=== PATIENT | male | born 1930 | race Caucasian/White ===

== ENCOUNTER → 2016-05-26 | Outpatient (CLI) | payer OTHER ==
[~2016-05-26] MED LIST: ADVIN25/60 INH; ASPCH81X PO; ATRIN INH; CARBTAB3 PO; CEFT1INJ6 IM; CYM/30 PO; CYNI1000 SQ; EXLP46 TOP; FERR1TAB13 PO; FLUT0.15 NAE; GLC/500 PO; GLIM1TAB2 PO; OXYB5TAB21 PO; PANT40TA PO; PIMA17TA PO; POLY335019 PO; RASA1TAB PO; ROPI1TAB PO; SIMV20TA2 PO; TAMS0.4C38 PO; TYLOTC500 PO
[2016-05-26 08:38] LABS: ESTIMATED AVERAGE GLUCOSE 123 mg/dl; HA1C FLAG Normal (Normal)
== END ==
LOC: C.LABCC 08:03
PROVIDERS: ATTEND Internal Medicine
DX: E11.21 Type 2 diabetes mellitus with diabetic nephropathy (principal)

== ENCOUNTER → 2016-08-14 | Outpatient (CLI) | payer OTHER ==
[2016-08-14 17:56] LABS: URINE APPEARANCE CLOUDY (CLEAR); URINE BILIRUBIN NEG (NEG); URINE COLOR DK YELLOW; URINE EPITHELIAL CELL AUTO >30 /lpf (0-5); URINE NITRITE POS (NEG); URINE SPECIFIC GRAVITY 1.024 (1.000-1.030); UROBILINOGEN NEG (NEG); ZZURINE CULT IF INDIC CATH YES
[2016-08-14 18:21] LABS: MANUAL MICROSCOPIC REQUIRED? NO; REVIEW REQ? YES
[2016-08-14 18:52] LABS: URINE PATH CASTS 0-3 GRANULAR CASTS /lpf (0)
== END | disposition home or self-care (01) ==
LOC: C.LABCC 17:29
PROVIDERS: ATTEND Internal Medicine
DX: R39.15 Urgency of urination (principal)

== ENCOUNTER → 2016-09-14 | Outpatient (CLI) | payer OTHER ==
[2016-09-14 01:51] LABS: URINE APPEARANCE CLOUDY (CLEAR); URINE BILIRUBIN NEG (NEG); URINE COLOR DK YELLOW; URINE NITRITE NEG (NEG); URINE SPECIFIC GRAVITY 1.023 (1.000-1.030); UROBILINOGEN NEG (NEG); ZZURINE CULT IF INDIC CATH YES
[2016-09-14 01:53] LABS: MANUAL MICROSCOPIC REQUIRED? NO; REVIEW REQ? NO
== END ==
LOC: C.LABCC 11:01
PROVIDERS: ATTEND Internal Medicine
DX: R45.1 Restlessness and agitation (principal); R41.82 Altered mental status, unspecified

== ENCOUNTER → 2016-09-26 | Outpatient (CLI) | payer OTHER ==
[2016-09-26 09:55] LABS: ESTIMATED AVERAGE GLUCOSE 120 mg/dl; HA1C FLAG Normal (Normal)
== END | disposition home or self-care (01) ==
LOC: C.LABCC 09:24
PROVIDERS: ATTEND Internal Medicine
DX: E11.21 Type 2 diabetes mellitus with diabetic nephropathy (principal)

== ENCOUNTER → 2016-10-03 | Outpatient (CLI) | payer OTHER ==
[2016-10-03 09:11] LABS: URINE APPEARANCE CLOUDY (CLEAR); URINE BILIRUBIN NEG (NEG); URINE COLOR DK YELLOW; URINE EPITHELIAL CELL AUTO 0-5 /lpf (0-5); URINE NITRITE NEG (NEG); URINE PH 6.5 (4.5-7.5); URINE SPECIFIC GRAVITY 1.025 (1.000-1.030); UROBILINOGEN NEG (NEG)
[2016-10-03 09:13] LABS: MANUAL MICROSCOPIC REQUIRED? NO; REVIEW REQ? NO
== END ==
LOC: C.LABCC 08:47
PROVIDERS: ATTEND Internal Medicine
DX: R41.82 Altered mental status, unspecified (principal)

== ENCOUNTER → 2016-10-05 | Outpatient (CLI) | payer OTHER ==
[2016-10-05 08:23] LABS: BASO % 0.5 %; BASO ABS # 0.03 K/uL (0-0.2); COMPLETE YES; EOS % 4.5 %; HEMATOCRIT 38.8 % (42-52); IG% 0.2 %; LYMPH % 24.6 %; LYMPH ABS # 1.47 K/uL (1.2-3.4); MEAN CELL VOLUME 91.1 fL (80-100); MEAN CORPUSCULAR HEMOGLOBIN 29.1 pg (25-34); MEAN PLATELET VOLUME 9.5 fL (7.4-10.4); MONO % 7.7 %; NEUT % 62.5 %; PLATELET COUNT 193 K/uL (130-400); RED BLOOD COUNT 4.26 M/uL (4.7-6.1); WHITE BLOOD COUNT 5.97 K/uL (4.8-10.8)
[2016-10-05 08:55] LABS: BLOOD UREA NITROGEN 21 mg/dl (7-18); BUN/CREATININE RATIO 24.5 (10-20); CARBON DIOXIDE 32 mmol/L (21-32); CHLORIDE 108 mmol/L (98-107); CREATININE 0.87 mg/dl (0.60-1.40); GLUCOSE 86 mg/dl (70-99); POTASSIUM 4.3 mmol/L (3.5-5.1); SODIUM 144 mmol/L (136-145)
== END ==
LOC: C.LABCC 08:05
PROVIDERS: ATTEND Internal Medicine
DX: N39.0 Urinary tract infection, site not specified (principal); R29.6 Repeated falls

== ENCOUNTER → 2016-11-30 | Outpatient (CLI) | payer OTHER ==
[2016-11-30 18:59] LABS: URINE APPEARANCE CLOUDY (CLEAR); URINE BILIRUBIN NEG (NEG); URINE COLOR DK YELLOW; URINE EPITHELIAL CELL AUTO 20-30 /lpf (0-5); URINE NITRITE NEG (NEG); URINE SPECIFIC GRAVITY 1.024 (1.000-1.030); UROBILINOGEN NEG (NEG)
[2016-11-30 19:03] LABS: MANUAL MICROSCOPIC REQUIRED? NO; REVIEW REQ? NO
== END ==
LOC: C.LABCC 17:39
PROVIDERS: ATTEND Internal Medicine
DX: R41.82 Altered mental status, unspecified (principal)

== ENCOUNTER → 2017-01-03 | Outpatient (CLI) | payer OTHER ==
[2017-01-03 09:04] LABS: URINE APPEARANCE CLEAR (CLEAR); URINE BILIRUBIN NEG (NEG); URINE COLOR DK YELLOW; URINE EPITHELIAL CELL AUTO 0-5 /lpf (0-5); URINE NITRITE NEG (NEG); URINE PH 5.5 (4.5-7.5); URINE SPECIFIC GRAVITY 1.031 (1.000-1.030); UROBILINOGEN NEG (NEG)
[2017-01-03 09:19] LABS: MANUAL MICROSCOPIC REQUIRED? NO; REVIEW REQ? YES
== END | disposition home or self-care (01) ==
LOC: C.LABCC 08:13
PROVIDERS: ATTEND Internal Medicine
DX: R41.82 Altered mental status, unspecified (principal)

== ENCOUNTER → 2017-01-09 | Outpatient (CLI) | payer OTHER ==
[2017-01-09 19:27] LABS: URINE APPEARANCE CLOUDY (CLEAR); URINE BILIRUBIN NEG (NEG); URINE COLOR DK YELLOW; URINE NITRITE NEG (NEG); URINE SPECIFIC GRAVITY 1.023 (1.000-1.030); UROBILINOGEN NEG (NEG)
[2017-01-09 19:28] LABS: MANUAL MICROSCOPIC REQUIRED? NO; REVIEW REQ? NO
== END ==
LOC: C.LABSPEC 17:37
PROVIDERS: ATTEND Internal Medicine
DX: R41.82 Altered mental status, unspecified (principal); R35.0 Frequency of micturition; R29.6 Repeated falls

== ENCOUNTER → 2017-01-26 | Outpatient (CLI) | payer OTHER ==
[2017-01-26 09:51] LABS: ESTIMATED AVERAGE GLUCOSE 123 mg/dl; HA1C FLAG Normal (Normal)
== END ==
LOC: C.LABCC 07:51
PROVIDERS: ATTEND Internal Medicine
DX: E11.21 Type 2 diabetes mellitus with diabetic nephropathy (principal)

== ENCOUNTER → 2017-02-04 | Outpatient (CLI) | payer OTHER ==
[2017-02-04 09:41] LABS: URINE APPEARANCE TURBID (CLEAR); URINE BILIRUBIN NEG (NEG); URINE COLOR DK YELLOW; URINE NITRITE NEG (NEG); URINE PH 8.5 (4.5-7.5); URINE SPECIFIC GRAVITY 1.021 (1.000-1.030); UROBILINOGEN NEG (NEG)
[2017-02-04 10:14] LABS: MANUAL MICROSCOPIC REQUIRED? NO; REVIEW REQ? YES; SULFASALICYLIC ACID POS (NEG)
== END ==
LOC: C.LABCC 15:28
PROVIDERS: ATTEND Internal Medicine
DX: R29.6 Repeated falls (principal); R41.82 Altered mental status, unspecified

== ENCOUNTER → 2017-02-05 | Outpatient (CLI) | payer OTHER ==
[2017-02-05 10:00] LABS: BASO % 0.4 %; BASO ABS # 0.03 K/uL (0-0.2); COMPLETE YES; EOS % 3.4 %; HEMATOCRIT 38.5 % (42-52); IG% 0.1 %; LYMPH % 23.3 %; LYMPH ABS # 1.66 K/uL (1.2-3.4); MEAN CELL VOLUME 90.8 fL (80-100); MEAN CORPUSCULAR HEMOGLOBIN 30.2 pg (25-34); MEAN CORPUSCULAR HGB CONC 33.2 g/dl (32-36); MEAN PLATELET VOLUME 9.9 fL (7.4-10.4); MONO % 6.2 %; NEUT % 66.6 %; PLATELET COUNT 192 K/uL (130-400); RED BLOOD COUNT 4.24 M/uL (4.7-6.1); WHITE BLOOD COUNT 7.11 K/uL (4.8-10.8)
[2017-02-05 10:36] LABS: BLOOD UREA NITROGEN 25 mg/dl (7-18); BUN/CREATININE RATIO 29.6 (10-20); CALCIUM 8.4 mg/dl (8.5-10.1); CARBON DIOXIDE 27 mmol/L (21-32); CHLORIDE 108 mmol/L (98-107); CREATININE 0.85 mg/dl (0.60-1.40); GLUCOSE 97 mg/dl (70-99); POTASSIUM 3.9 mmol/L (3.5-5.1); SODIUM 141 mmol/L (136-145)
== END ==
LOC: C.LABCC 09:19
PROVIDERS: ATTEND Internal Medicine
DX: R29.6 Repeated falls (principal)

== ENCOUNTER → 2017-02-07 | Outpatient (CLI) | payer OTHER | LOC: C.LABCC 08:25 | PROVIDERS: ATTEND Internal Medicine | DX: R41.82 Altered mental status, unspecified (principal); R29.6 Repeated falls ==

== ENCOUNTER → 2017-05-24 | Outpatient (CLI) | payer OTHER ==
[2017-05-24 09:35] LABS: HEMATOCRIT 38.9 % (42-52); HEMOGLOBIN 12.8 g/dL (14.0-18.0); MEAN CELL VOLUME 92.4 fL (80-100); MEAN CORPUSCULAR HEMOGLOBIN 30.4 pg (25-34); MEAN CORPUSCULAR HGB CONC 32.9 g/dl (32-36); PLATELET COUNT 205 K/uL (130-400); RED CELL DISTRIBUTION WIDTH CV 14.3 % (11.5-14.5); RED CELL DISTRIBUTION WIDTH SD 48.4 fL (36.4-46.3); WHITE BLOOD COUNT 5.01 K/uL (4.8-10.8)
[2017-05-24 10:00] LABS: ALT/SGPT 20 U/L (12-78); AST/SGOT 12 U/L (15-37); BLOOD UREA NITROGEN 26 mg/dl (7-18); CALCIUM 8.2 mg/dl (8.5-10.1); CARBON DIOXIDE 29 mmol/L (21-32); CREATININE 0.71 mg/dl (0.60-1.40); GLUCOSE 89 mg/dl (70-99); POTASSIUM 4.1 mmol/L (3.5-5.1); SODIUM 140 mmol/L (136-145)
[2017-05-24 10:12] LABS: ALKALINE PHOSPHATASE 62 U/L (45-117); TOTAL PROTEIN 6.5 gm/dl (6.4-8.2)
== END ==
LOC: C.LABCC 08:55
PROVIDERS: ATTEND Internal Medicine
DX: R26.9 Unspecified abnormalities of gait and mobility (principal); G20 Parkinson's disease; I10 Essential (primary) hypertension

== ENCOUNTER → 2017-05-29 | Outpatient (CLI) | payer OTHER ==
[2017-05-29 08:48] LABS: HEMOGLOBIN A1C 5.3 % (4.5-5.6)
== END ==
LOC: C.LABCC 07:55
PROVIDERS: ATTEND Internal Medicine
DX: E11.9 Type 2 diabetes mellitus without complications (principal)

== ENCOUNTER → 2017-06-06 | Outpatient (CLI) | payer OTHER ==
--- NOTE | 2017-07-06 07:17 | CODING QUERY NO DIAGNOSIS ---
TREATMENT RENDERED WITHOUT A DIAGNOSIS To promote full compliance with coding requirements relating to patient care, physician participation is requested in all cases of tire changer uncertainty. Please assist us with providing a diagnosis/symptom for the test(s) below: A diagnosis/symptom was not documented on your Order. A valid diagnosis/symptom is required to bill all insurances. Please remember that we are unable to code a diagnosis of rule out, probable, possible, questionable, or suspected. Tests that require a diagnosis: DOS: 06/06/17 * UA CATH DIAGNOSIS: * URINE CULTURE CATH DIAGNOSIS: Provider Signature: Date: Thank you Kimberly Weaver [employer] Once completed, please kindly fax back to [phone] For questions please call [phone]
== END ==
LOC: C.LABSPEC 14:05
PROVIDERS: ATTEND Internal Medicine
DX: R41.82 Altered mental status, unspecified (principal); R29.6 Repeated falls

== ENCOUNTER → 2017-06-12 | Outpatient (CLI) | payer OTHER ==
[2017-06-12 08:19] LABS: MEAN CORPUSCULAR HGB CONC 31.8 g/dl (32-36); MEAN PLATELET VOLUME 9.9 fL (7.4-10.4); NUCLEATED RED BLOOD CELL ABS 0.03 K/uL (0-0); PLATELET COUNT 237 K/uL (130-400)
[2017-06-12 08:42] LABS: HEMATOCRIT 37.7 % (42-52); MEAN CELL VOLUME 92.2 fL (80-100); MEAN CORPUSCULAR HEMOGLOBIN 29.3 pg (25-34); RED CELL DISTRIBUTION WIDTH CV 13.7 % (11.5-14.5); RED CELL DISTRIBUTION WIDTH SD 46.1 fL (36.4-46.3); WHITE BLOOD COUNT 5.58 K/uL (4.8-10.8)
[2017-06-12 08:43] LABS: BASO % 0.4 %; BASO ABS # 0.02 K/uL (0-0.2); EOS % 4.1 %; EOS ABS # 0.23 K/uL (0-0.5); IG# 0.01 K/uL (0.00-0.02); LYMPH % 21.5 %; MONO % 5.9 %; MONO ABS # 0.33 K/uL (0.11-0.59); NEUT % 67.9 %; NEUT ABS # 3.79 K/uL (1.4-6.5)
== END ==
LOC: C.LABCC 07:46
PROVIDERS: ATTEND Internal Medicine
DX: M79.81 Nontraumatic hematoma of soft tissue (principal)

== ENCOUNTER → 2017-06-13 | Outpatient (CLI) | payer OTHER | LOC: C.LABCC 18:02 | PROVIDERS: ATTEND Internal Medicine | DX: R25.1 Tremor, unspecified (principal); R41.82 Altered mental status, unspecified ==

== ENCOUNTER 2017-07-28 21:28 | Emergency (ER) | payer OTHER ==
[~2017-07-28] VITALS: Ht 179.1 cm; Wt 89.3 kg
[2017-07-28] MEDS ORDERED: ACETAMINOPHEN 500 MG TAB PO STA (21:43)
[2017-07-28 21:46] VITALS: TEMP 36.5; O2SAT 100; Ht 179.1 cm; Wt 89.3 kg
--- NOTE | 2017-07-28 22:00 | EMERGENCY ROOM VISIT NOTE ---
History Report prepared by Harsha: Erin Capone Under the Supervision of: Dr. Sim Silvestre M.D. First contact with patient: 21:31 Chief Complaint: FALL Stated Complaint: FALL/ R HIP PAIN /CENTRE CREST History of Present Illness The patient is a 86 year old male who presents to the Emergency Room with complaints of an episode of an unwitnessed fall occurring just prior to arrival. The patient comes from [facility]. Per nursing, the patient was in a his wheelchair and when the staff went back into the room he was found lying on the ground. Family reports the patient is at baseline. The patient reports lower back pain which is chronic for him. He states he has fallen seven times last month. He notes right heel pain and left upper leg pain. The patient is not on any blood thinners. The patient notes a lump on his chest which he believes is new. The patient recently broke his left knee. The patient was in a leg immobilizer for his broken knee which he got out of a week ago. He denies any fever, chills, cough, or congestion. The patient has a history of Parkinson' s disease. Source of History: patient, nursing staff Onset: just prior to arrival Position: other (generalized) Quality: other (fall) Timing: other (episode) Associated Symptoms: + back pain, No fevers, No chills, No cough Review of Systems See HPI for pertinent positives and negatives. A total of ten systems were reviewed and were otherwise negative. Past Medical & Surgical Medical Problems: (1) Parkinson's disease (2) UTI (urinary tract infection) Family History Patient reports no known family medical history. Social History Drug Use: none Marital Status: Housing Status: other Occupation Status: retired Current/Historical Medications Scheduled Acetaminophen (Tylenol), 1,000 MG PO AMHS Aspirin (Aspirin Chewable), 81 MG PO DAILY Carbidopa/Levodopa/Entacapone 37.5/150/200MG (Stalevo 150), 1 TAB PO QID Cyanocobalamin (Cyanocobalamin), 1,000 MCG SQ MONTHLY Duloxetine Hcl (Cymbalta), 30 MG PO QAM Finasteride (Proscar), 5 MG PO QAM Fluticasone Propionate (Nasal) (Flonase Allergy Relief), 2 SPRAY GRETA DAILY Glimepiride (Glimepiride), 1 TAB PO QAM Ipratropium [place] (Atrovent Hfa), 2 PUFFS INH QID Metformin Hcl (Glucophage), 500 MG PO BID Multiple Vitamins W/ Minerals (Multi Vitamin and Mineral), 1 TAB PO QAM Pantoprazole (Protonix), 40 MG PO QAM Petrolatum-Zinc Oxide (Sensi-Care Protective Bar), 1 APPLN TD Q8 Rasagiline Mesylate (Azilect), 1 MG PO QAM Rivastigmine Tartrate (Exelon), 1 PATCH TOP QAM Ropinirole (Requip), 1 MG PO TID Senna/Docusate Sod (Senokot S), 1 TAB PO BID Tamsulosin Hcl (Flomax), 0.4 MG PO HS Scheduled PRN Acetaminophen (Tylenol), 650 MG PO Q6H PRN for Pain or Fever Bisacodyl (Dulcolax), 1 SUPP RI DAILY PRN for NO BM IN 3 DAYS Magnesium Hydroxide (Milk of Magnesia), 30 ML PO DAILY PRN for NO BM IN 3 DAYS. Oxycodone Ir (Roxicodone Ir), 5 MG PO Q4H PRN for Moderate Pain Oxycodone Ir (Roxicodone Ir), 5 MG PO Q6H PRN for SEVERE PAIN Sodium Phosphate/Biphosphate (Fleet Enema), 1 EA RI DAILY PRN for NO BM AFTER DULCOLAX SUPP Allergies Coded Allergies: Cat Dander (Verified Allergy, Unknown, unknown, 07/28/17) Obtained from [facility] facility information Grass (Verified Allergy, Unknown, unknown, 07/28/17) Obtained from [facility] facility information POLLEN (Verified Allergy, Unknown, unknown, 07/28/17) Obtained from [facility] information Senna (Verified Allergy, Unknown, respiratory problems per spouse, 07/28/17 ) Obtained from [facility] information Hydrocodone (Verified Adverse Reaction, Unknown, HALLUCINATIONS, 07/28/17) Zolpidem (Verified Adverse Reaction, Unknown, Hallucinations, 07/28/17) Obtained from [facility] information Physical Exam Vital Signs Date Time Temp Pulse Resp B/P (MAP) Pulse Ox O2 Delivery O2 Flow Rate FiO2 07/29/17 01:28 88 16 98 07/29/17 01:03 162/81 07/29/17 00:58 79 07/29/17 00:02 154/95 07/28/17 23:58 79 22 97 07/28/17 23:53 76 18 166/87 100 Room Air 07/28/17 23:39 166/97 07/28/17 22:00 127/86 07/28/17 21:58 82 23 98 07/28/17 21:46 100 Room Air 07/28/17 21:46 36.5 84 18 144/77 100 Room Air 07/28/17 21:36 83 07/28/17 21:34 144/77 Physical Exam GENERAL: Awake, alert, demented at baseline, no distress HEAD: Normocephalic, atraumatic. No peck sign. No raccoon eyes. EYES: Normal conjunctiva. PERRL. EARS: External ears normal. Right TM normal. Left TM normal. NOSE: Atraumatic OROPHARYNX: Lips, tongue, and mucosa are dry. No erythema or exudate. NECK: No No tracheal deviation or JVD. No posterior midline tenderness. No step offs noted. RESPIRATORY: CTA bilaterally CARDIAC: Normal rate, normal rhythm. ABDOMEN: Inspection reveals no abnormalities. Soft, non distended. No tenderness to palpation. No hernias. BACK: Mild L-spine tenderness, no step off. Unremarkable. PELVIS: Stable to rock. SKIN: Normal. LYMPH: No adenopathy. MUSCULOSKELETAL: Mild tenderness and swelling to left knee, ROM intact. Mild tenderness to left heel and proximal tibia no gross deformity. NEURO: GCS 15. Normal sensorium. No sensory or motor deficits noted. Medical Decision & Procedures ER Provider Diagnostic Interpretation: Radiology results as stated below per my review and radiologist interpretation: CT SCAN OF THE CHEST, ABDOMEN, AND PELVIS WITHOUT IV CONTRAST CHEST: Thyroid: Imaged portions of the thyroid gland are normal in size and attenuation. Thoracic aorta: There is atherosclerotic calcification of the thoracic aorta, which is normal in caliber and demonstrates standard 3-vessel arch anatomy. Heart: The patient is status post midline sternotomy. Findings suggest previous aortic valve surgery. The heart is mildly enlarged and without pericardial effusion. The coronary arteries are densely calcified. The main pulmonary arteries appear mildly dilated suggesting pulmonary artery hypertension Lungs and pleural spaces: Evaluation of lung parenchyma is degraded by motion artifact. Emphysema and interstitial thickening are noted. The trachea and central airways are patent. No pleural effusion is identified. Patchy tree-in-bud airspace consolidation is seen at the right lung base. There is a groundglass lesion in the left lower lobe seen on image #159. This measures 3.2 x 2.7 cm. A more superiorly located groundglass/nodular lesion in the left lower lobe as seen on image #131 and measures 2.3 x 1.7 cm. A 1.2 cm groundglass lesion is seen at the right apex image #37. Mediastinum: There is no mediastinal hematoma or lymphadenopathy. Adriana: Not well assessed without IV contrast. Axillae: There is no axillary lymphadenopathy. Bony thorax: The skeletal structures are osteopenic. The bony thorax appears intact. No lytic or blastic lesions are identified. There are healed right-sided rib fractures. Degenerative change is noted throughout the thoracic spine. Intrathecal leads terminate in the midthoracic region. Soft tissues: An electronic device is present in the right upper chest wall. ABDOMEN AND PELVIS: Liver: Evaluation of the liver is degraded by streak artifact. The unenhanced liver is normal in size, contour, and attenuation. There is no intrahepatic or ductal dilatation. Gallbladder: Contracted and grossly unremarkable. Spleen: Top normal in size measuring 13.3 cm. The spleen is normal in attenuation. Pancreas: The unenhanced pancreas is markedly atrophic and grossly unremarkable. 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 The right adrenal gland is normal in appearance. Kidneys: The unenhanced kidneys are atrophic and without hydronephrosis. Renovascular calcifications are noted. There is a 5 mm calculus in the right proximal ureter seen on image #215 at the level of L4. There is mild fullness of the renal collecting system. No additional calculi are seen in either kidney. There is no evidence of contour deforming mass lesion. Abdominal vasculature: The abdominal aorta is normal in course and caliber noting advanced atherosclerotic calcification. Bowel: Mild rectal wall thickening is suggested. No bowel obstruction is seen. There is mild to moderate colonic diverticulosis without CT evidence of acute diverticulitis. Moderate colonic fecal retention is observed. The appendix is not identified. Peritoneum: There is no intraperitoneal free air or abdominal ascites. There is a fat-containing umbilical hernia. Lymphadenopathy: None. Pelvic viscera: The prostate gland is mildly enlarged and heterogeneous. The bladder wall appears thickened and trabeculated indicating chronic outlet obstruction. Skeletal structures: The skeletal structures are osteopenic. Lumbosacral spine and bony pelvis appear intact. There is advanced lumbosacral spondylosis. Grade 1 anterolisthesis and near complete bony fusion is seen at L3-L4. No lytic or blastic lesions are seen. Postlaminectomy change is seen throughout the lumbar spine. A nurse similar device is present in the right gluteal soft tissues. IMPRESSION: 1. Significantly suboptimal examination without oral and IV contrast. The examination is also compromised by streak and motion artifact. 2. Cardiomegaly and emphysema. 3. There is patchy tree-in-bud airspace consolidation at the right lung base. The appearance is typical for an infectious/inflammatory pneumonitis versus aspiration. 4. There are at least 3 additional groundglass pulmonary lesions seen located in the right upper and left lower lobes. These are pathologically indeterminant, and may be on an infectious/inflammatory basis. Neoplasm is not excluded. A 2-3 month follow-up chest CT is recommended to document resolution. 5. There is no evidence of solid organ injury in the abdomen or pelvis on this unenhanced examination. 6. There is a 5 mm obstructing calculus in the right proximal ureter. This causes only minimal fullness of the right renal collecting system. 7. Moderate constipation. No bowel obstruction is seen. 8. Circumferential rectal wall thickening is identified. Correlate clinically for evidence of proctitis. Consider nonemergent follow-up with colonoscopy for further assessment and to exclude underlying mucosal lesion. 9. Colonic diverticulosis without CT evidence of acute diverticulitis. 10. Additional findings as above. Electronically signed by: Brigido Dietrich M.D. CT SCAN OF THE CERVICAL SPINE FINDINGS: Skeletal structures: The skeletal structures are osteopenic. There is no evidence of fracture or subluxation involving the cervical spine. Vertebral body height and alignment are maintained. There is straightening of the cervical lordosis with mild reversal centered at C4-C5. The odontoid process and lateral masses are intact. The atlantoaxial articulation is preserved noting mild productive degenerative change. The spinous processes appear intact. Small anterior osteophytes are seen in the lower cervical region. There is mild multilevel cervical spondylosis. Facet arthropathy is noted at several levels. Intervertebral discs: The disc spaces are well maintained. Central canal: Widely patent. Soft tissues: The prevertebral and paraspinous soft tissues are within normal limits. Advanced atherosclerotic calcification is noted in the carotid bulbs. Leads are present in the right posterior soft tissues. Calvarium: The visualized calvarium at the skull base appears intact. Brain parenchyma: Partially visualized brain parenchyma the skull base is within normal limits noting involutional change. Sinuses and mastoids: The visualized paranasal sinuses are clear. Mastoid effusions are noted. Lung apices: Emphysematous change is noted at the apices. A 1.2 cm groundglass lesion is noted at the right apex. IMPRESSION: 1. There is no evidence of fracture or subluxation involving the cervical spine. 2. Osteopenia and spondylotic change as above. Electronically signed by: Brigido Dietrich M.D. SINGLE VIEW CHEST IMPRESSION: 1. Cardiomegaly and emphysema. 2. No airspace consolidation or pleural effusion is identified. 3. Ground glass pulmonary lesions seen on today's chest CT are not apparent by x-ray. See chest CT report for detailed findings.. Electronically signed by: Brigido Dietrich M.D. RIGHT FEMUR 3 VIEWS FINDINGS: AP, frog-leg, and lateral views of the right femur are obtained. No prior studies are available for comparison at the time of dictation. The skeletal structures are osteopenic. There is no radiographic evidence of right femoral fracture. Mild arthritic change is seen in the hip joint. A right knee arthroplasty is partially imaged. The visualized right hemipelvis appears intact. The overlying soft tissues are within normal limits. There is advanced atherosclerotic calcification of the right femoral artery. IMPRESSION: Osteopenia with no radiographic evidence of right femoral fracture. Electronically signed by: Brigido Dietrich M.D. RIGHT FOOT 3 VIEWS CLINICAL HISTORY: Fall with right foot pain. FINDINGS: 3 views of the right foot are obtained. No prior studies are available for comparison at the time of dictation. The skeletal structures are osteopenic. No fracture is identified. Mild arthritic change is seen at the first metatarsophalangeal joint. Mild arthritic change is also seen involving the intertarsal joints. The overlying soft tissues are normal in appearance. Atherosclerotic calcification is present in the regional arteries. IMPRESSION: Osteopenia and arthritic change as above. There is no radiographic evidence of right foot fracture. Electronically signed by: Brigido Dietrich M.D. CT SCAN OF THE BRAIN WITHOUT IV CONTRAST FINDINGS: Brain parenchyma: Electrodes are identified from a bifrontal approach. These terminate in the thalamus bilaterally. There are age-related involutional changes noting mild subcortical and periventricular microangiopathic change. There is no hemorrhage, mass effect, or evidence of acute territorial ischemia by CT criteria. Cano-white matter is preserved. No extra-axial fluid collection is seen. Ventricles, sulci, cisterns: Prominent secondary to involutional change. Intracranial vasculature: There is atherosclerotic calcification of the cavernous carotid and vertebral arteries. Calvarium: The skeletal structures are osteopenic. No depressed calvarial fracture is seen. There are bifrontal zulay holes. Soft tissues: There is a small left posterior parietal scalp contusion. Sinuses and mastoids: There is mild mucosal thickening seen within the maxillary antra. The remaining visualized paranasal sinuses are clear. There are small mastoid effusions. Orbits: The bony orbits are grossly intact. Bilateral ocular lens implants are noted. IMPRESSION: 1. There is no hemorrhage, mass effect, or evidence of acute territorial ischemia by CT criteria. 2. Bilateral intracranial electrodes are identified and terminate in the thalami. Electronically signed by: Brigido Dietrich M.D. SINGLE VIEW PELVIS; 2 VIEWS RIGHT HIP CLINICAL HISTORY: Fall. FINDINGS: An AP pelvic radiograph with AP and frog-leg views of the right hip are correlated with pelvic CT performed the same day 07/28/2017. The skeletal structures are osteopenic. No fracture is seen involving the hips or bony pelvis. Mild arthritic change is noted in the hips. The overlying soft tissues are normal in appearance. Advanced atherosclerotic calcification is seen in the femoral arteries. Lumbosacral spondylosis is partially imaged. An electronic device projects over the right lower quadrant. No bowel obstruction is seen. IMPRESSION: Osteopenia with no radiographic evidence of fracture involving the hips or bony pelvis. Electronically signed by: Brigido Dietrich M.D. RIGHT KNEE 3 VIEWS CLINICAL HISTORY: Fall with right knee pain. FINDINGS: AP, crosstable lateral, and sunrise views of the right knee are obtained. No prior studies are available for comparison at the time of dictation. The skeletal structures are osteopenic. No fracture is seen. A right knee arthroplasty is in near-anatomic alignment. No periprosthetic lucency is identified. There has been undersurface remodeling of the patella. No joint effusion is identified. The overlying soft tissues are normal in appearance. Advanced atherosclerotic calcification is noted in the popliteal artery. IMPRESSION: There is no radiographic evidence of right knee fracture. Electronically signed by: Brigido Dietrich M.D. CT SCAN OF THE LUMBAR SPINE WITHOUT IV CONTRAST FINDINGS: The skeletal structures are osteopenic. There is no evidence of fracture or malalignment involving the lumbar spine. Postlaminectomy change is seen from L2 to S1. Vertebral body height is preserved. There is 1.4 cm of anterolisthesis at L3-L4 with near-complete bony fusion at this level. Minimal anterolisthesis is seen at L2-L3. Alignment is otherwise maintained. The transverse processes appear intact. No lytic or blastic lesion is seen. Mild facet arthropathy is noted throughout the lumbar spine. There is complete loss of the disc space at L3-L4. Severe disc space narrowing is also seen at L2-L3 with associated endplate sclerosis. Moderate disc space narrowing is noted at L4-L5. There is no evidence of large disc herniation by CT. Posterior disc osteophyte complexes are seen at L2-L3, L4-L5, and L5-S1. The visualized sacrum and bony pelvis appear intact. Intrathecal leads enter the central canal at the level of T12. There is fatty atrophy of the paraspinous musculature. Atherosclerotic calcification is noted in the abdominal aorta. IMPRESSION: 1. There is no evidence of acute fracture or malalignment involving the lumbar spine. 2. Osteopenia with advanced spondylotic and postoperative change as above. Dictated: 07/28/2017 11:03 PM Transcribed: 07/28/2017 11:46 PM [email or web address] Electronically signed by: Brigido Dietrich M.D. RIGHT TIBIA AND FIBULA 2 VIEWS CLINICAL HISTORY: Fall with right leg pain. FINDINGS: AP and lateral views of the right tibia and fibula are obtained. No prior studies are available for comparison at the time of dictation. The skeletal structures are osteopenic. There is no radiographic evidence of right tibial or fibular fracture. A right knee arthroplasty is noted. The ankle joint is grossly maintained. Soft tissue edema is present in the calf. There is atherosclerotic calcification of the regional arteries. IMPRESSION: Soft tissue swelling with no radiographic evidence of right tibial or fibular fracture. Electronically signed by: Brigido Dietrich M.D. Laboratory Results 07/28/17 21:46 Red Blood Count 4.13, Mean Corpuscular Volume 90.8, Mean Corpuscular Hemoglobin 30.3, Mean Corpuscular Hemoglobin Concent 33.3, Mean Platelet Volume 9.5, Neutrophils (%) (Auto) 60.7, Lymphocytes (%) (Auto) 26.9, Monocytes (%) (Auto) 6.1, Eosinophils (%) (Auto) 5.5, Basophils (%) (Auto) 0.4, Neutrophils # (Auto) 3.21, Lymphocytes # (Auto) 1.42, Monocytes # (Auto) 0.32, Eosinophils # (Auto) 0.29, Basophils # (Auto) 0.02 07/28/17 21:46 Test 07/28/17 21:46 07/28/17 22:50 White Blood Count 5.28 K/uL (4.8-10.8) Red Blood Count 4.13 M/uL (4.7-6.1) Hemoglobin 12.5 g/dL (14.0-18.0) Hematocrit 37.5 % (42-52) Mean Corpuscular Volume 90.8 fL (80-100) Mean Corpuscular Hemoglobin 30.3 pg (25-34) Mean Corpuscular Hemoglobin Concent 33.3 g/dl (32-36) Platelet Count 181 K/uL (130-400) Mean Platelet Volume 9.5 fL (7.4-10.4) Neutrophils (%) (Auto) 60.7 % Lymphocytes (%) (Auto) 26.9 % Monocytes (%) (Auto) 6.1 % Eosinophils (%) (Auto) 5.5 % Basophils (%) (Auto) 0.4 % Neutrophils # (Auto) 3.21 K/uL (1.4-6.5) Lymphocytes # (Auto) 1.42 K/uL (1.2-3.4) Monocytes # (Auto) 0.32 K/uL (0.11-0.59) Eosinophils # (Auto) 0.29 K/uL (0-0.5) Basophils # (Auto) 0.02 K/uL (0-0.2) RDW Standard Deviation 50.2 fL (36.4-46.3) RDW Coefficient of Variation 15.1 % (11.5-14.5) Immature Granulocyte % (Auto) 0.4 % Immature Granulocyte # (Auto) 0.02 K/uL (0.00-0.02) Anion Gap 2.0 mmol/L (3-11) Est Creatinine Clear Calc Drug Dose 86.7 ml/min Estimated GFR () 99.3 Estimated GFR (Non- 85.7 BUN/Creatinine Ratio 31.7 (10-20) Calcium Level 7.8 mg/dl (8.5-10.1) Total Bilirubin 0.3 mg/dl (0.2-1) Direct Bilirubin 0.1 mg/dl (0-0.2) Aspartate Amino Transf (AST/SGOT) 20 U/L (15-37) Alanine Aminotransferase (ALT/SGPT) 10 U/L (12-78) Alkaline Phosphatase 71 U/L (45-117) Troponin I < 0.015 ng/ml (0-0.045) Total Protein 6.5 gm/dl (6.4-8.2) Albumin 2.9 gm/dl (3.4-5.0) Lipase 49 U/L (73-393) Urine Color ORANGE Urine Appearance CLEAR (CLEAR) Urine pH (4.5-7.5) Urine Specific [place] 1.026 (1.000-1.030) Urine Protein NEG (NEG) Urine Glucose (UA) (NEG) Urine Ketones (NEG) Urine Occult Blood (NEG) Urine Nitrite (NEG) Urine Bilirubin (NEG) Urine Urobilinogen (NEG) Urine Leukocyte Esterase (NEG) Urine RBC 0-4 /hpf (0-4) Urine WBC 0 /hpf (0-5) Urine Epithelial Cells 0-5 /lpf (0-5) Urine Bacteria NEG (NEG) Laboratory results reviewed by me Medications Administered Medications (Trade) Dose Ordered Sig/Donald Route Start Time Stop Time Status Last Admin Dose Admin Acetaminophen (Tylenol Tab) 1,000 mg NOW STAT PO 07/28/17 21:43 07/28/17 21:47 DC 07/28/17 22:17 1,000 MG ECG Per My Interpretation Indication: other (fall) Rate (beats per minute): 81 Rhythm: sinus rhythm Findings: 1st degree AV block, no acute ischemic change ED Course 2133: The patient was evaluated in room C4. A complete history and physical exam was performed. 0019: The patient is now reporting his right leg is hurting more than his left. Medical Decision I reviewed the patient's past medical history, medications, and the nursing notes as described above. Differential diagnosis: Etiologies such as fracture, dislocation, intra-abdominal, pneumothorax, intrathoracic , intracranial, neurologic, as well as other traumatic pathologies were entertained. 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 Per report the patient complained of left leg pain but on arrival the patient intermittently complains of left leg pain but then also right foot pain. Otherwise the patient is at his baseline for his dementia and Parkinson's per the family at the bedside. Of note, initially considered bilateral lower extremity plain films given the patient's unreliable exam but then decided to obtain left lower extremity plain films given this seemed to be his most consistent complaint. However, right lower extremity plain films were ordered. Thus, left lower extremity plain films were then subsequently ordered and provided complete evaluation of the patient's lower extremity complaints in the setting of his unreliable exam. Family updated. WBC within normal limits. Labs otherwise unremarkable. UA negative for infection. Given the patient's unreliable exam the setting of his dementia we performed a CT of his head, chest , abdomen/pelvis as well as cervical and lumbar spine which were negative for traumatic findings. However, there were incidental findings of multiple groundglass opacities with broad differential of infectious versus inflammatory versus aspiration versus malignancy. There was also an incidental 5 mm right ureteral stone causing mild renal pelvic fullness. Regarding the patient's renal stone, the patient is having no abdominal symptoms. Moreover, since the patient's urine shows no infection, with normal WBC and he is afebrile, no indication for treatment at this time. The patient is already on Flomax and so this should assist with stone passage. CT chest findings were discussed with the family and we agree that given that the patient has no respiratory symptoms at this time, is saturating normally on room air, we will defer any treatment. However, the patient has previously been evaluated for aspiration and is on a nectar thick diet. Will recommend patient obtain a new speech/swallow study to assess need for any new diet modifications. The patient's left knee plain film demonstrates a medial distal femoral irregularity that could be consistent with the patient's recent fracture 6 weeks ago. Otherwise the patient's plain films were negative for acute fracture. Given that formal radiology reads for the left lower extremity are still pending I discussed with family the option to place the patient in a knee immobilizer until reads a finalized. However we agreed that given that the patient recently was just cleared from his knee immobilizer from his prior fracture they prefer to defer this at this time. Given the fact that the patient does not bear weight on his knee at baseline this is reasonable. Findings and plan for follow-up reviewed with patient. Patient agreeable and d/c'd per discharge instructions. Medication Reconcilliation Current Medication List: was personally reviewed by me Impression Primary Impression: Fall Additional Impressions: Ureteral calculus, right Knee pain, left Scribe Attestation The scribe's documentation has been prepared under my direction and personally reviewed by me in its entirety. I confirm that the note above accurately reflects all work, treatment, procedures, and medical decision making performed by me. Departure Information Dispostion Home / Self-Care Referrals Cavalier, Amaya (PCP) Forms HOME CARE DOCUMENTATION FORM, IMPORTANT VISIT INFORMATION Patient Instructions Aspiration Dysphagia, ED Mechanical Fall, ED Stone Kidney Undescended No Sx, Knee Pain, My [facility] Additional Instructions Please follow up with your primary care physician on Sunday for re-evaluation and to discuss follow up for your incidental kidney stone and lung findings on your CT scan. Given your CT findings you should also have an updated evaluation for your swallowing ability to assess your risk for aspiration and need for possible diet modification. Otherwise, your exam, EKG, lab results, xrays, and CT scans did not show signs of an emergent condition at this time. Of note you do have x-ray reports that are still pending the formal read, if there are any new findings that are interpreted, such as a fracture you will be contacted. Acetaminophen or ibuprofen for pain and fevers as needed. Drink plenty of fluids to ensure hydration. Return to the emergency department for worsening symptoms as described in the accompanying instructions. Problem Qualifiers
[2017-07-28 22:06] LABS: BASO % 0.4 %; BASO ABS # 0.02 K/uL (0-0.2); EOS % 5.5 %; EOS ABS # 0.29 K/uL (0-0.5); HEMATOCRIT 37.5 % (42-52); HEMOGLOBIN 12.5 g/dL (14.0-18.0); IG# 0.02 K/uL (0.00-0.02); LYMPH % 26.9 %; LYMPH ABS # 1.42 K/uL (1.2-3.4); MEAN CELL VOLUME 90.8 fL (80-100); MEAN CORPUSCULAR HEMOGLOBIN 30.3 pg (25-34); MEAN CORPUSCULAR HGB CONC 33.3 g/dl (32-36); MEAN PLATELET VOLUME 9.5 fL (7.4-10.4); MONO % 6.1 %; MONO ABS # 0.32 K/uL (0.11-0.59); NEUT % 60.7 %; NEUT ABS # 3.21 K/uL (1.4-6.5); PLATELET COUNT 181 K/uL (130-400); RED CELL DISTRIBUTION WIDTH CV 15.1 % (11.5-14.5); RED CELL DISTRIBUTION WIDTH SD 50.2 fL (36.4-46.3); WHITE BLOOD COUNT 5.28 K/uL (4.8-10.8)
[2017-07-28 22:13] LABS: ALBUMIN 2.9 gm/dl (3.4-5.0); ALT/SGPT 10 U/L (12-78); BLOOD UREA NITROGEN 23 mg/dl (7-18); CALCIUM 7.8 mg/dl (8.5-10.1); CARBON DIOXIDE 31 mmol/L (21-32); CREATININE 0.72 mg/dl (0.60-1.40); GLUCOSE 130 mg/dl (70-99); LIPASE 49 U/L (73-393); POTASSIUM 4.1 mmol/L (3.5-5.1); SODIUM 141 mmol/L (136-145)
[2017-07-28] MEDS ORDERED: PETR49OI TD (22:14)
[2017-07-28] MEDS ORDERED: MOMLX PO (22:14)
[2017-07-28] MEDS ORDERED: SENN-65 PO (22:14)
[2017-07-28] MEDS ORDERED: FINA5TAB PO (22:14)
[2017-07-28] MEDS ORDERED: MULT-1042 PO (22:14)
[2017-07-28] MEDS ORDERED: OXYC1TAB3 PO ×2 (22:14)
[2017-07-28] MEDS ORDERED: ACET-1311 PO (22:14)
[2017-07-28] MEDS ORDERED: BISA10SU38 PR (22:14)
[2017-07-28] MEDS ORDERED: SODIENE PR (22:14)
[2017-07-28 22:18] LABS: ALKALINE PHOSPHATASE 71 U/L (45-117); AST/SGOT 20 U/L (15-37); TOTAL PROTEIN 6.5 gm/dl (6.4-8.2)
--- NOTE | 2017-07-28 22:42 | DIAGNOSTIC IMAGING REPORT ---
CT SCAN OF THE BRAIN WITHOUT IV CONTRAST CLINICAL HISTORY: Fall. COMPARISON STUDY: CT of the brain dated 03/16/2016. TECHNIQUE: Unenhanced axial CT scan of the brain is performed from the vertex to the skull base. Streak artifact from intracranial leads degrades the examination. A dose lowering protocol was utilized adhering to the principles of ALARA. FINDINGS: Brain parenchyma: Electrodes are identified from a bifrontal approach. These terminate in the thalamus bilaterally. There are age-related involutional changes noting mild subcortical and periventricular microangiopathic change. There is no hemorrhage, mass effect, or evidence of acute territorial ischemia by CT criteria. Cano-white matter is preserved. No extra-axial fluid collection is seen. Ventricles, sulci, cisterns: Prominent secondary to involutional change. Intracranial vasculature: There is atherosclerotic calcification of the cavernous carotid and vertebral arteries. Calvarium: The skeletal structures are osteopenic. No depressed calvarial fracture is seen. There are bifrontal zulay holes. Soft tissues: There is a small left posterior parietal scalp contusion. Sinuses and mastoids: There is mild mucosal thickening seen within the maxillary antra. The remaining visualized paranasal sinuses are clear. There are small mastoid effusions. Orbits: The bony orbits are grossly intact. Bilateral ocular lens implants are noted. IMPRESSION: 1. There is no hemorrhage, mass effect, or evidence of acute territorial ischemia by CT criteria. 2. Bilateral intracranial electrodes are identified and terminate in the thalami. Electronically signed by: Brigido Dietrich M.D. 07/28/2017 10:41 PM Dictated Date/Time: 07/28/2017 10:38 PM
--- NOTE | 2017-07-28 23:02 | DIAGNOSTIC IMAGING REPORT ---
CT SCAN OF THE CHEST, ABDOMEN, AND PELVIS WITHOUT IV CONTRAST CLINICAL HISTORY: Fall. COMPARISON STUDY: Chest x-ray dated 03/16/2016. Abdominal CT dated 03/16/2016. TECHNIQUE: CT scan of the chest, abdomen, and pelvis was performed from the thoracic inlet to the proximal femora. Images are reviewed in the axial, sagittal, and coronal planes. IV contrast not was administered as per the referring clinician. Note that the examination was performed in significantly suboptimal fashion without oral and IV contrast. The examination is also degraded by motion artifact, as well as by streak artifact from the arms which could not be elevated above the chest or abdomen. Automated dose control exposure was utilized. A dose lowering technique was utilized adhering to the principles of ALARA. CT DOSE: 2469.05 mGy.cm FINDINGS: CHEST: Thyroid: Imaged portions of the thyroid gland are normal in size and attenuation. Thoracic aorta: There is atherosclerotic calcification of the thoracic aorta, which is normal in caliber and demonstrates standard 3-vessel arch anatomy. Heart: The patient is status post midline sternotomy. Findings suggest previous aortic valve surgery. The heart is mildly enlarged and without pericardial effusion. The coronary arteries are densely calcified. The main pulmonary arteries appear mildly dilated suggesting pulmonary artery hypertension Lungs and pleural spaces: Evaluation of lung parenchyma is degraded by motion artifact. Emphysema and interstitial thickening are noted. The trachea and central airways are patent. No pleural effusion is identified. Patchy tree-in-bud airspace consolidation is seen at the right lung base. There is a groundglass lesion in the left lower lobe seen on image #159. This measures 3.2 x 2.7 cm. A more superiorly located groundglass/nodular lesion in the left lower lobe as seen on image #131 and measures 2.3 x 1.7 cm. A 1.2 cm groundglass lesion is seen at the right apex image #37. Mediastinum: There is no mediastinal hematoma or lymphadenopathy. Adriana: Not well assessed without IV contrast. Axillae: There is no axillary lymphadenopathy. Bony thorax: The skeletal structures are osteopenic. The bony thorax appears intact. No lytic or blastic lesions are identified. There are healed right-sided rib fractures. Degenerative change is noted throughout the thoracic spine. Intrathecal leads terminate in the midthoracic region. Soft tissues: An electronic device is present in the right upper chest wall. ABDOMEN AND PELVIS: Liver: Evaluation of the liver is degraded by streak artifact. The unenhanced liver is normal in size, contour, and attenuation. There is no intrahepatic or ductal dilatation. Gallbladder: Contracted and grossly unremarkable. Spleen: Top normal in size measuring 13.3 cm. The spleen is normal in attenuation. Pancreas: The unenhanced pancreas is markedly atrophic and grossly unremarkable. 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 The right adrenal gland is normal in appearance. Kidneys: The unenhanced kidneys are atrophic and without hydronephrosis. Renovascular calcifications are noted. There is a 5 mm calculus in the right proximal ureter seen on image #215 at the level of L4. There is mild fullness of the renal collecting system. No additional calculi are seen in either kidney. There is no evidence of contour deforming mass lesion. Abdominal vasculature: The abdominal aorta is normal in course and caliber noting advanced atherosclerotic calcification. Bowel: Mild rectal wall thickening is suggested. No bowel obstruction is seen. There is mild to moderate colonic diverticulosis without CT evidence of acute diverticulitis. Moderate colonic fecal retention is observed. The appendix is not identified. Peritoneum: There is no intraperitoneal free air or abdominal ascites. There is a fat-containing umbilical hernia. Lymphadenopathy: None. Pelvic viscera: The prostate gland is mildly enlarged and heterogeneous. The bladder wall appears thickened and trabeculated indicating chronic outlet obstruction. Skeletal structures: The skeletal structures are osteopenic. Lumbosacral spine and bony pelvis appear intact. There is advanced lumbosacral spondylosis. Grade 1 anterolisthesis and near complete bony fusion is seen at L3-L4. No lytic or blastic lesions are seen. Postlaminectomy change is seen throughout the lumbar spine. A nurse similar device is present in the right gluteal soft tissues. IMPRESSION: 1. Significantly suboptimal examination without oral and IV contrast. The examination is also compromised by streak and motion artifact. 2. Cardiomegaly and emphysema. 3. There is patchy tree-in-bud airspace consolidation at the right lung base. The appearance is typical for an infectious/inflammatory pneumonitis versus aspiration. 4. There are at least 3 additional groundglass pulmonary lesions seen located in the right upper and left lower lobes. These are pathologically indeterminant, and may be on an infectious/inflammatory basis. Neoplasm is not excluded. A 2-3 month follow-up chest CT is recommended to document resolution. 5. There is no evidence of solid organ injury in the abdomen or pelvis on this unenhanced examination. 6. There is a 5 mm obstructing calculus in the right proximal ureter. This causes only minimal fullness of the right renal collecting system. 7. Moderate constipation. No bowel obstruction is seen. 8. Circumferential rectal wall thickening is identified. Correlate clinically for evidence of proctitis. Consider nonemergent follow-up with colonoscopy for further assessment and to exclude underlying mucosal lesion. 9. Colonic diverticulosis without CT evidence of acute diverticulitis. 10. Additional findings as above. Electronically signed by: Brigido Dietrich M.D. 07/28/2017 11:01 PM Dictated Date/Time: 07/28/2017 10:43 PM
--- NOTE | 2017-07-28 23:14 | DIAGNOSTIC IMAGING REPORT ---
CT SCAN OF THE CERVICAL SPINE CLINICAL HISTORY: Fall. COMPARISON STUDY: No priors. TECHNIQUE: CT scan of the cervical spine is performed from the skull base to the upper thoracic spine. Images are reviewed in the axial, sagittal, and coronal planes. IV contrast was not administered for this examination. A dose lowering technique was utilized adhering to the principles of ALARA. FINDINGS: Skeletal structures: The skeletal structures are osteopenic. There is no evidence of fracture or subluxation involving the cervical spine. Vertebral body height and alignment are maintained. There is straightening of the cervical lordosis with mild reversal centered at C4-C5. The odontoid process and lateral masses are intact. The atlantoaxial articulation is preserved noting mild productive degenerative change. The spinous processes appear intact. Small anterior osteophytes are seen in the lower cervical region. There is mild multilevel cervical spondylosis. Facet arthropathy is noted at several levels. Intervertebral discs: The disc spaces are well maintained. Central canal: Widely patent. Soft tissues: The prevertebral and paraspinous soft tissues are within normal limits. Advanced atherosclerotic calcification is noted in the carotid bulbs. Leads are present in the right posterior soft tissues. Calvarium: The visualized calvarium at the skull base appears intact. Brain parenchyma: Partially visualized brain parenchyma the skull base is within normal limits noting involutional change. Sinuses and mastoids: The visualized paranasal sinuses are clear. Mastoid effusions are noted. Lung apices: Emphysematous change is noted at the apices. A 1.2 cm groundglass lesion is noted at the right apex. IMPRESSION: 1. There is no evidence of fracture or subluxation involving the cervical spine. 2. Osteopenia and spondylotic change as above. Electronically signed by: Brigido Dietrich M.D. 07/28/2017 11:13 PM Dictated Date/Time: 07/28/2017 11:08 PM
--- NOTE | 2017-07-28 23:46 | DIAGNOSTIC IMAGING REPORT ---
CT SCAN OF THE LUMBAR SPINE WITHOUT IV CONTRAST CLINICAL HISTORY: Fall. Low back pain. COMPARISON STUDY: Abdominal CT scans dated 07/28/2017 and 03/16/2016. TECHNIQUE: CT scan of the lumbar spine is performed from the lower thoracic spine to the sacrum. Images are reviewed in the axial, sagittal, and coronal planes. The examination is degraded by streak and motion artifact. IV contrast was not administered for this examination. A dose lowering technique was utilized adhering to the principles of ALARA. FINDINGS: The skeletal structures are osteopenic. There is no evidence of fracture or malalignment involving the lumbar spine. Postlaminectomy change is seen from L2 to S1. Vertebral body height is preserved. There is 1.4 cm of anterolisthesis at L3-L4 with near-complete bony fusion at this level. Minimal anterolisthesis is seen at L2-L3. Alignment is otherwise maintained. The transverse processes appear intact. No lytic or blastic lesion is seen. Mild facet arthropathy is noted throughout the lumbar spine. There is complete loss of the disc space at L3-L4. Severe disc space narrowing is also seen at L2-L3 with associated endplate sclerosis. Moderate disc space narrowing is noted at L4-L5. There is no evidence of large disc herniation by CT. Posterior disc osteophyte complexes are seen at L2-L3, L4-L5, and L5-S1. The visualized sacrum and bony pelvis appear intact. Intrathecal leads enter the central canal at the level of T12. There is fatty atrophy of the paraspinous musculature. Atherosclerotic calcification is noted in the abdominal aorta. IMPRESSION: 1. There is no evidence of acute fracture or malalignment involving the lumbar spine. 2. Osteopenia with advanced spondylotic and postoperative change as above. Dictated: 07/28/2017 11:03 PM Transcribed: 07/28/2017 11:46 PM [email or web address]_[email or web address] Electronically signed by: Brigido Dietrich M.D. 07/28/2017 11:51 PM Dictated Date/Time: 07/28/2017 11:03 PM
--- NOTE | 2017-07-28 23:54 | DIAGNOSTIC IMAGING REPORT ---
SINGLE VIEW PELVIS; 2 VIEWS RIGHT HIP CLINICAL HISTORY: Fall. FINDINGS: An AP pelvic radiograph with AP and frog-leg views of the right hip are correlated with pelvic CT performed the same day 07/28/2017. The skeletal structures are osteopenic. No fracture is seen involving the hips or bony pelvis. Mild arthritic change is noted in the hips. The overlying soft tissues are normal in appearance. Advanced atherosclerotic calcification is seen in the femoral arteries. Lumbosacral spondylosis is partially imaged. An electronic device projects over the right lower quadrant. No bowel obstruction is seen. IMPRESSION: Osteopenia with no radiographic evidence of fracture involving the hips or bony pelvis. Electronically signed by: Brigido Dietrich M.D. 07/28/2017 11:53 PM Dictated Date/Time: 07/28/2017 11:51 PM
--- NOTE | 2017-07-28 23:56 | DIAGNOSTIC IMAGING REPORT ---
SINGLE VIEW CHEST CLINICAL HISTORY: Fall. Atypical chest pain. FINDINGS: An AP, portable, upright chest radiograph is compared to study dated 03/16/2016 and correlated with chest CT performed the same day 07/28/2017. The examination is degraded by portable technique and patient rotation. Electronic device partially secures the right upper chest. The patient is status post midline sternotomy. The heart is enlarged and there is atherosclerotic calcification of the thoracic aorta. The pulmonary vasculature is noncongested. Emphysema and chronic interstitial thickening are similar to previous. No airspace consolidation or pleural effusion is identified. No pneumothorax is seen. The skeletal structures are osteopenic. There are healed right-sided rib fractures. IMPRESSION: 1. Cardiomegaly and emphysema. 2. No airspace consolidation or pleural effusion is identified. 3. Ground glass pulmonary lesions seen on today's chest CT are not apparent by x-ray. See chest CT report for detailed findings.. Electronically signed by: Brigido Dietrich M.D. 07/28/2017 11:54 PM Dictated Date/Time: 07/28/2017 11:53 PM
--- NOTE | 2017-07-28 23:57 | DIAGNOSTIC IMAGING REPORT ---
RIGHT KNEE 3 VIEWS CLINICAL HISTORY: Fall with right knee pain. FINDINGS: AP, crosstable lateral, and sunrise views of the right knee are obtained. No prior studies are available for comparison at the time of dictation. The skeletal structures are osteopenic. No fracture is seen. A right knee arthroplasty is in near-anatomic alignment. No periprosthetic lucency is identified. There has been undersurface remodeling of the patella. No joint effusion is identified. The overlying soft tissues are normal in appearance. Advanced atherosclerotic calcification is noted in the popliteal artery. IMPRESSION: There is no radiographic evidence of right knee fracture. Electronically signed by: Brigido Dietrich M.D. 07/28/2017 11:55 PM Dictated Date/Time: 07/28/2017 11:54 PM
--- NOTE | 2017-07-28 23:58 | DIAGNOSTIC IMAGING REPORT ---
RIGHT FEMUR 3 VIEWS CLINICAL HISTORY: Fall with right leg pain. FINDINGS: AP, frog-leg, and lateral views of the right femur are obtained. No prior studies are available for comparison at the time of dictation. The skeletal structures are osteopenic. There is no radiographic evidence of right femoral fracture. Mild arthritic change is seen in the hip joint. A right knee arthroplasty is partially imaged. The visualized right hemipelvis appears intact. The overlying soft tissues are within normal limits. There is advanced atherosclerotic calcification of the right femoral artery. IMPRESSION: Osteopenia with no radiographic evidence of right femoral fracture. Electronically signed by: Brigido Dietrich M.D. 07/28/2017 11:56 PM Dictated Date/Time: 07/28/2017 11:55 PM
--- NOTE | 2017-07-28 23:59 | DIAGNOSTIC IMAGING REPORT ---
RIGHT TIBIA AND FIBULA 2 VIEWS CLINICAL HISTORY: Fall with right leg pain. FINDINGS: AP and lateral views of the right tibia and fibula are obtained. No prior studies are available for comparison at the time of dictation. The skeletal structures are osteopenic. There is no radiographic evidence of right tibial or fibular fracture. A right knee arthroplasty is noted. The ankle joint is grossly maintained. Soft tissue edema is present in the calf. There is atherosclerotic calcification of the regional arteries. IMPRESSION: Soft tissue swelling with no radiographic evidence of right tibial or fibular fracture. Electronically signed by: Brigido Dietrich M.D. 07/28/2017 11:58 PM Dictated Date/Time: 07/28/2017 11:57 PM
--- NOTE | 2017-07-29 00:01 | DIAGNOSTIC IMAGING REPORT ---
RIGHT FOOT 3 VIEWS CLINICAL HISTORY: Fall with right foot pain. FINDINGS: 3 views of the right foot are obtained. No prior studies are available for comparison at the time of dictation. The skeletal structures are osteopenic. No fracture is identified. Mild arthritic change is seen at the first metatarsophalangeal joint. Mild arthritic change is also seen involving the intertarsal joints. The overlying soft tissues are normal in appearance. Atherosclerotic calcification is present in the regional arteries. IMPRESSION: Osteopenia and arthritic change as above. There is no radiographic evidence of right foot fracture. Electronically signed by: Brigido Dietrich M.D. 07/28/2017 11:59 PM Dictated Date/Time: 07/28/2017 11:58 PM
[2017-07-29 01:03] VITALS: BP 162/81
[2017-07-29 01:28] VITALS: PULSE 88; O2SAT 98
--- NOTE | 2017-07-29 07:49 | DIAGNOSTIC IMAGING REPORT ---
LEFT HIP 2 VIEWS; LEFT FEMUR 3 VIEWS CLINICAL HISTORY: Fall with left leg pain. FINDINGS: AP and frog-leg views of the left hip with AP, frog-leg, and lateral views of the left femur are obtained. No prior studies are available for comparison at the time of dictation. The skeletal structures are osteopenic. There is no radiographic evidence of left hip fracture. The visualized left hemipelvis appears intact. There is no left femoral fracture. A left knee arthroplasty is partially visualized. Mild to moderate arthritic change is seen in the left hip. The overlying soft tissues are within normal limits. There is atherosclerotic calcification of the left femoral artery. IMPRESSION: 1. There is no radiographic evidence of left hip fracture. 2. There is no radiographic evidence of left femoral fracture. Electronically signed by: Brigido Dietrich M.D. 07/29/2017 7:48 AM Dictated Date/Time: 07/29/2017 7:45 AM
--- NOTE | 2017-07-29 07:51 | DIAGNOSTIC IMAGING REPORT ---
LEFT KNEE 3 VIEWS CLINICAL HISTORY: Fall with left leg pain. FINDINGS: AP, crosstable lateral, and sunrise views of the left knee are obtained. No prior studies are available for comparison at the time of dictation. The skeletal structures are osteopenic. No fracture is seen. A left knee arthroplasty is in near-anatomic alignment. No periprosthetic lucency is suggested. There has been undersurface remodeling of the patella. Heterotopic bone formation is noted along the medial aspect of the medial femoral condyle. A joint effusion is identified. Mild prepatellar soft tissue edema is noted. Advanced atherosclerotic calcification is seen in the popliteal artery. IMPRESSION: 1. Soft tissue swelling and joint effusion. No fracture is identified. 2. Osteopenia and left knee arthroplasty as above. Electronically signed by: Brigido Dietrich M.D. 07/29/2017 7:50 AM Dictated Date/Time: 07/29/2017 7:48 AM
--- NOTE | 2017-07-29 07:52 | DIAGNOSTIC IMAGING REPORT ---
LEFT TIBIA AND FIBULA 2 VIEWS CLINICAL HISTORY: Fall with left leg pain. FINDINGS: AP and lateral views of the left tibia and fibula are obtained. No prior studies are available for comparison at the time of dictation. The skeletal structures are osteopenic. There is no radiographic evidence of left tibial or fibular fracture. A left knee arthroplasty is noted. The ankle joint appears maintained. Soft tissue edema is present in the calf. There is atherosclerotic calcification of the regional arteries. IMPRESSION: Soft tissue edema with no radiographic evidence of left tibial or fibular fracture. Electronically signed by: Brigido Dietrich M.D. 07/29/2017 7:51 AM Dictated Date/Time: 07/29/2017 7:50 AM
--- NOTE | 2017-07-29 07:54 | DIAGNOSTIC IMAGING REPORT ---
LEFT FOOT 3 VIEWS CLINICAL HISTORY: Fall with left foot pain. FINDINGS: 3 views of the left foot are obtained. No prior studies are available for comparison at the time of dictation. The skeletal structures are osteopenic. No fracture is seen. Moderate arthritic change with bony sclerosis and overgrowth is seen at the first metatarsophalangeal joint. Milder arthritic change is noted involving the intertarsal and tarsometatarsal joints. An enthesophyte is seen at the base of the fifth metatarsal. There is a plantar calcaneal enthesophyte, and degenerative spurring is seen along the dorsal aspect of the tarsal bones. There is atherosclerotic calcification of the regional arteries. The overlying soft tissues are normal as imaged. IMPRESSION: 1. No acute bony abnormality is seen in the left foot. 2. Osteopenia and arthritic change as above. Electronically signed by: Brigido Diterich M.D. 07/29/2017 7:52 AM Dictated Date/Time: 07/29/2017 7:51 AM
== END 2017-07-29 02:00 ==
LOC: EDUNIT# 21:28 → C.EDC 21:31 → C.EDA 07-29 02:00
DX: N20.1 Calculus of ureter (principal); M25.562 Pain in left knee; W07.XXXA Fall from chair, initial encounter; Y92.199 Unspecified place in other specified residential institution as the place of occurrence of the external cause; R22.2 Localized swelling, mass and lump, trunk; R91.8 Other nonspecific abnormal finding of lung field; G20 Parkinson's disease; F03.90 Unspecified dementia, unspecified severity, without behavioral disturbance, psychotic disturbance, mood disturbance, and anxiety; I44.0 Atrioventricular block, first degree; Z79.82 Long term (current) use of aspirin; Z79.84 Long term (current) use of oral hypoglycemic drugs; Z91.048 Other nonmedicinal substance allergy status; Z88.8 Allergy status to other drugs, medicaments and biological substances; Z88.5 Allergy status to narcotic agent